=== PATIENT | male | born 1990 | race Asian ===

== ENCOUNTER 2021-03-14 08:09 | Emergency (ER) | payer OTHER ==
[2021-03-14] MEDS ORDERED: Ondansetron ODT 4 MG TAB ONE (08:44)
[2021-03-14] MEDS ORDERED: Acetaminophen 500 MG TAB ONE (08:44)
[2021-03-14] MEDS ORDERED: Ibuprofen 800 MG TAB ONE (09:36)
== END 2021-03-14 10:22 | disposition home or self-care (01) ==
LOC: ERS 08:09
DX: U07.1 COVID-19 (principal)
CPT/HCPCS: 71045; Q0162